=== PATIENT | female | born 1945 | race African-American/Black ===

== ENCOUNTER 2022-05-05 15:30 | Inpatient (IN) ==
[2022-05-05] MEDS ORDERED: SODIUM CHLORIDE 0.9% 1,000 ML IV STA (16:20)
[2022-05-05 16:28] LABS: Basophils % 0.2 % (0.0-0.8); Eosinophils % 0.1 % (0.00-10.9); Hematocrit 34.2 VOL% (35.7-47.0); Immature Granulocytes % 0.4 %; Immature Granulocytes Absolute 0.04 #; Lymphocytes # 1.4 10*3/uL (1.4-4.0); Mean Corpuscular HGB Conc 29.2 GM/DL (32-36); Mean Corpuscular Volume 92.7 FL (87-102); Mean Platelet Volume 11.7 FL (9.6-12.0); Monocytes # 0.7 10*3/uL (0.11-0.8); Monocytes % 7.3 % (1.7-12.7); Platelet Count 258 T/CUMM (130-400); Red Blood Count 3.69 MC/CUMM (3.8-5.5); Red Cell Distribution Width 15.1 % (9.3-17.3); White Blood Count 9.8 T/CUMM (4-12)
[2022-05-05 16:55] LABS: Alanine Aminotransferase 24 U/L (13-56); Albumin 2.8 G/DL (3.4-5.0); Alkaline Phosphatase 91 U/L (45-117); Aspartate Amino Transferase 24 U/L (0-37); Bilirubin,Total < 0.39 MG/DL (0.20-1.00); Blood Urea Nitrogen 31 MG/DL (7-18); Calcium 9.5 MG/DL (8.5-10.1); Carbon Dioxide 33 MMOL/L (21-32); Chloride 108 MMOL/L (98-107); Glucose 186 MG/DL (74-106); Osmolality,Calculated 301.6 MOS/KG (273-304); Potassium 3.6 MMOL/L (3.5-5.1); Sodium 146 MMOL/L (136-145); Total Protein 9.5 G/DL (6.4-8.2)
[2022-05-05 17:23] LABS: PT Patient Result 10.8 SECS (10.1-12.1)
[2022-05-05] MEDS ORDERED: PANTOPRAZOLE 40 MG VIAL IV STA (17:26)
[2022-05-05] MEDS ORDERED: ONDANSETRON 4 MG/2 ML VIAL IV STA (17:26)
[2022-05-05] MEDS ORDERED: ONDANSETRON 4 MG/2 ML VIAL ONE (17:26)
[2022-05-05] MEDS ORDERED: PIPERACILLIN/TAZOBACTAM 3,375 MG in SODIUM CHLORIDE 0.9% 100 ML IV STA (17:27)
[2022-05-05 17:28] LABS: Partial Thromboplastin Time < 20.0 SECS (23.7-32.9)
[2022-05-05 17:51] LABS: Bilirubin,Urine Negative (Negative); Blood, Urine Moderate mg/dL (Negative); Glucose,Urine (UA) Negative (Negative); Ketones,Urine Negative (Negative); Nitrite,Urine Negative (Negative); Protein,Urine >=300 mg/dL (Negative); Urine Appearance Slightly Hazy (Clear); Urine Color Yellow (Yellow); Urine Specific Gravity 1.025 (1.001-1.035); Urine Urobilinogen 0.2 eU/dL (<2.0)
[2022-05-05 17:54] LABS: Bacteria,Urine Few /HPF (Few); Mucus,Urine Occasional /LPF (Occasional); RBC,Urine 20 /HPF (0-4)
[2022-05-05] MEDS ORDERED: PANTOPRAZOLE INJ 80 MG in SODIUM CHLORIDE 0.9% 100 ML IV ONE (18:07)
[2022-05-05] MEDS ORDERED: ONDANSETRON 4 MG/2 ML VIAL IV PRN (18:07)
[2022-05-05] MEDS ORDERED: SODIUM CHLORIDE 0.9% 1,000 ML IV PRN (18:13)
[2022-05-05] MEDS ORDERED: DEXTROSE 10% 250 ML BAG IV PRN (18:36)
[2022-05-05] MEDS ORDERED: GLUCAGON 1 MG VIAL IM PRN (18:36)
[2022-05-05 18:39] LABS: Thyroid Stimulating Hormone 3.03 uIU/ml (0.358-3.74)
[2022-05-05] MEDS ORDERED: AZITHROMYCIN INJ 500 MG in SODIUM CHLORIDE 0.9% 250 ML IV SCH (20:00)
[2022-05-05] MEDS: LACTATED RINGERS 1,000 ML IV SCH (20:37)
[2022-05-05] MEDS ORDERED: cefTRIAXone 1,000 MG in SODIUM CHLORIDE 0.9% 100 ML IV SCH (21:00)
[2022-05-05] MEDS ORDERED: PANTOPRAZOLE INJ 200 MG in SODIUM CHLORIDE 0.9% 250 ML IV SCH (21:00)
[2022-05-05 22:56] LABS: Hematocrit 33.2 VOL% (35.7-47.0); Hemoglobin 9.9 GM/DL (12.0-16.0)
[2022-05-05] MEDS: ALBUTEROL/IPRATROPIUM 3 ML NEB RESP TX SCH (23:50)
[2022-05-06] MEDS: INSULIN LISPRO 100 UNIT/ML SUBCUT SCH ×5 (00:07→23:47)
[2022-05-06] MEDS: ALBUTEROL/IPRATROPIUM 3 ML NEB RESP TX SCH ×6 (03:00→22:44)
[2022-05-06 05:00] LABS: Calcium 8.8 MG/DL (8.5-10.1); Osmolality,Calculated 298.4 MOS/KG (273-304); Potassium 3.3 MMOL/L (3.5-5.1)
[2022-05-06 05:21] LABS: Basophils % 0.1 % (0.0-0.8); Hemoglobin 9.6 GM/DL (12.0-16.0); Immature Granulocytes % 0.4 %; Immature Granulocytes Absolute 0.04 #; Lymphocytes # 1.9 10*3/uL (1.4-4.0); Lymphocytes % 17.5 % (21.3-54.2); Mean Corpuscular HGB Conc 29.1 GM/DL (32-36); Mean Corpuscular Volume 93.2 FL (87-102); Mean Platelet Volume 12.1 FL (9.6-12.0); Monocytes # 0.8 10*3/uL (0.11-0.8); Monocytes % 7.3 % (1.7-12.7); NRBC # 0.02 10*3/uL; Neutrophils % 74.7 % (38.7-73.9); Platelet Count 245 T/CUMM (130-400); Red Blood Count 3.54 MC/CUMM (3.8-5.5); Red Cell Distribution Width 15.1 % (9.3-17.3); White Blood Count 10.8 T/CUMM (4-12)
[2022-05-06] MEDS: POTASSIUM CHLORIDE RIDER 10 MEQ/100 ML PREMIX IV PRN ×4 (05:48→09:16)
[2022-05-06 06:12] LABS: Hypochromia Slight
[2022-05-06 06:13] LABS: Platelet Estimate Normal
[2022-05-06] MEDS: PIPERACILLIN/TAZOBACTAM 3,375 MG in SODIUM CHLORIDE 0.9% 100 ML IV SCH ×2 (09:11→17:55)
[2022-05-06] MEDS: fentaNYL 12 MCG/HR PATCH TRANSDERM SCH (15:04)
[2022-05-06] MEDS: GABAPENTIN 300 MG CAPSULE PEG SCH ×2 (15:04→20:37)
[2022-05-06] MEDS: LACTATED RINGERS 1,000 ML IV SCH (15:11)
[2022-05-06] MEDS: DOCUSATE SODIUM 100 MG/10 ML UDCUP PEG SCH (20:38)
[2022-05-06] MEDS: METOPROLOL TARTRATE 50 MG TABLET PO SCH (20:38)
[2022-05-06] MEDS ORDERED: [UNRECOGNIZED DRUG - OTHER] PEG SCH (21:00)
[2022-05-07] MEDS: PIPERACILLIN/TAZOBACTAM 3,375 MG in SODIUM CHLORIDE 0.9% 100 ML IV SCH ×3 (00:09→16:48)
[2022-05-07] MEDS: ALBUTEROL/IPRATROPIUM 3 ML NEB RESP TX SCH ×6 (03:05→22:24)
[2022-05-07] MEDS: LACTATED RINGERS 1,000 ML IV SCH (03:51)
[2022-05-07] MEDS: INSULIN LISPRO 100 UNIT/ML SUBCUT SCH ×3 (05:30→17:42)
[2022-05-07 06:37] LABS: Basophils % 0.4 % (0.0-0.8); Eosinophils # 0.1 10*3/uL (0.0-0.87); Eosinophils % 1.5 % (0.00-10.9); Hematocrit 29.5 VOL% (35.7-47.0); Hemoglobin 8.5 GM/DL (12.0-16.0); Immature Granulocytes % 0.5 %; Immature Granulocytes Absolute 0.05 #; Lymphocytes # 1.1 10*3/uL (1.4-4.0); Lymphocytes % 12.4 % (21.3-54.2); Mean Corpuscular HGB Conc 28.8 GM/DL (32-36); Mean Corpuscular Volume 94.2 FL (87-102); Mean Platelet Volume 11.2 FL (9.6-12.0); Monocytes # 0.6 10*3/uL (0.11-0.8); Monocytes % 6.6 % (1.7-12.7); Neutrophils % 78.6 % (38.7-73.9); Platelet Count 227 T/CUMM (130-400); Red Blood Count 3.13 MC/CUMM (3.8-5.5); Red Cell Distribution Width 15.2 % (9.3-17.3); White Blood Count 9.1 T/CUMM (4-12)
[2022-05-07 07:09] LABS: Calcium 8.8 MG/DL (8.5-10.1); Osmolality,Calculated 296.3 MOS/KG (273-304); Potassium 3.3 MMOL/L (3.5-5.1)
[2022-05-07] MEDS: POTASSIUM CHLORIDE RIDER 10 MEQ/100 ML PREMIX IV PRN ×5 (08:29→13:40)
[2022-05-07] MEDS: PANTOPRAZOLE 40 MG VIAL IV SCH ×2 (08:30→20:40)
[2022-05-07] MEDS: DOCUSATE SODIUM 100 MG/10 ML UDCUP PEG SCH ×2 (08:33→20:39)
[2022-05-07] MEDS: LOSARTAN 50 MG TABLET PEG SCH (08:33)
[2022-05-07] MEDS: ATORVASTATIN 10 MG TABLET PEG SCH (08:33)
[2022-05-07] MEDS: METOPROLOL TARTRATE 50 MG TABLET PO SCH ×2 (08:33→22:11)
[2022-05-07] MEDS: GABAPENTIN 300 MG CAPSULE PEG SCH ×3 (08:33→20:39)
[2022-05-07] MEDS: DEXTROSE 5% NACL 0.45% 1,000 ML IV SCH (09:28)
[2022-05-08] MEDS: DEXTROSE 5% NACL 0.45% 1,000 ML IV SCH ×2 (01:37→17:08)
[2022-05-08] MEDS: PIPERACILLIN/TAZOBACTAM 3,375 MG in SODIUM CHLORIDE 0.9% 100 ML IV SCH ×3 (01:45→17:08)
[2022-05-08] MEDS: INSULIN LISPRO 100 UNIT/ML SUBCUT SCH ×4 (01:57→17:40)
[2022-05-08] MEDS: ALBUTEROL/IPRATROPIUM 3 ML NEB RESP TX SCH ×6 (03:39→23:59)
[2022-05-08 06:19] LABS: Basophils % 0.4 % (0.0-0.8); Eosinophils # 0.3 10*3/uL (0.0-0.87); Eosinophils % 3.8 % (0.00-10.9); Hematocrit 26.6 VOL% (35.7-47.0); Hemoglobin 7.7 GM/DL (12.0-16.0); Immature Granulocytes % 0.4 %; Immature Granulocytes Absolute 0.03 #; Lymphocytes # 1.3 10*3/uL (1.4-4.0); Lymphocytes % 16.3 % (21.3-54.2); Mean Corpuscular HGB Conc 28.9 GM/DL (32-36); Mean Corpuscular Volume 93.3 FL (87-102); Mean Platelet Volume 11.2 FL (9.6-12.0); Monocytes # 0.6 10*3/uL (0.11-0.8); Monocytes % 7.1 % (1.7-12.7); Platelet Count 212 T/CUMM (130-400); Red Blood Count 2.85 MC/CUMM (3.8-5.5); Red Cell Distribution Width 15.1 % (9.3-17.3); White Blood Count 7.7 T/CUMM (4-12)
[2022-05-08 06:36] LABS: Phosphorous 1.8 MG/DL (2.5-4.9)
[2022-05-08 06:37] LABS: Calcium 8.5 MG/DL (8.5-10.1); Osmolality,Calculated 298.3 MOS/KG (273-304); Potassium 3.2 MMOL/L (3.5-5.1)
[2022-05-08] MEDS: LACTATED RINGERS 1,000 ML IV SCH ×2 (07:47→13:13)
[2022-05-08] MEDS: POTASSIUM CHLORIDE RIDER 10 MEQ/100 ML PREMIX IV PRN (07:55)
[2022-05-08] MEDS: LOSARTAN 50 MG TABLET PEG SCH (08:07)
[2022-05-08] MEDS: METOPROLOL TARTRATE 50 MG TABLET PO SCH ×2 (08:07→21:10)
[2022-05-08] MEDS: ATORVASTATIN 10 MG TABLET PEG SCH (08:07)
[2022-05-08] MEDS: DOCUSATE SODIUM 100 MG/10 ML UDCUP PEG SCH ×2 (08:07→21:09)
[2022-05-08] MEDS: GABAPENTIN 300 MG CAPSULE PEG SCH ×3 (08:08→21:10)
[2022-05-08] MEDS: PANTOPRAZOLE 40 MG VIAL IV SCH ×2 (08:09→21:09)
[2022-05-08] MEDS ORDERED: POTASSIUM PHOSPHATE 30 MMOL in SODIUM CHLORIDE 0.9% 250 ML IV ONE (09:00)
[2022-05-08] MEDS ORDERED: propofoL 200 MG/20 ML VIAL IV ONE (14:29)
[2022-05-08] MEDS ORDERED: LIDOCAINE 2% 5 ML VIAL ONE (14:29)
[2022-05-08] MEDS: traMADol 50 MG TABLET PEG PRN (21:10)
[2022-05-09] MEDS: MENTHOL/ZINC OXIDE OINT 71 GM JAR TOP SCH ×2 (00:22→10:05)
[2022-05-09] MEDS: INSULIN LISPRO 100 UNIT/ML SUBCUT SCH ×4 (00:22→19:09)
[2022-05-09] MEDS: PIPERACILLIN/TAZOBACTAM 3,375 MG in SODIUM CHLORIDE 0.9% 100 ML IV SCH ×3 (00:23→18:24)
[2022-05-09] MEDS: DEXTROSE 5% NACL 0.45% 1,000 ML IV SCH ×2 (04:19→19:09)
[2022-05-09] MEDS: ALBUTEROL/IPRATROPIUM 3 ML NEB RESP TX SCH ×5 (04:45→18:04)
[2022-05-09 04:51] LABS: Basophils % 0.2 % (0.0-0.8); Eosinophils # 0.3 10*3/uL (0.0-0.87); Eosinophils % 4.8 % (0.00-10.9); Hematocrit 26.7 VOL% (35.7-47.0); Hemoglobin 7.9 GM/DL (12.0-16.0); Immature Granulocytes % 0.6 %; Immature Granulocytes Absolute 0.04 #; Lymphocytes % 15.6 % (21.3-54.2); Mean Corpuscular HGB Conc 29.6 GM/DL (32-36); Mean Corpuscular Volume 91.1 FL (87-102); Monocytes # 0.4 10*3/uL (0.11-0.8); Monocytes % 6.7 % (1.7-12.7); NRBC # 0.02 10*3/uL; Neutrophils % 72.1 % (38.7-73.9); Platelet Count 200 T/CUMM (130-400); Red Blood Count 2.93 MC/CUMM (3.8-5.5); Red Cell Distribution Width 15.1 % (9.3-17.3); White Blood Count 6.4 T/CUMM (4-12)
[2022-05-09 05:13] LABS: Calcium 8.2 MG/DL (8.5-10.1); Osmolality,Calculated 295.6 MOS/KG (273-304); Phosphorous 1.9 MG/DL (2.5-4.9); Potassium 3.4 MMOL/L (3.5-5.1)
[2022-05-09] MEDS: LACTATED RINGERS 1,000 ML IV SCH (06:00)
[2022-05-09] MEDS: PANTOPRAZOLE 40 MG VIAL IV SCH (09:58)
[2022-05-09] MEDS ORDERED: SODIUM CHLORIDE 0.9% 1,000 ML IV PRN (10:00)
[2022-05-09] MEDS: GABAPENTIN 300 MG CAPSULE PEG SCH ×2 (10:04→15:10)
[2022-05-09] MEDS: DOCUSATE SODIUM 100 MG/10 ML UDCUP PEG SCH (10:04)
[2022-05-09] MEDS: ATORVASTATIN 10 MG TABLET PEG SCH (10:04)
[2022-05-09] MEDS: METOPROLOL TARTRATE 50 MG TABLET PO SCH (10:04)
[2022-05-09] MEDS: LOSARTAN 50 MG TABLET PEG SCH (10:04)
[2022-05-09] MEDS: traMADol 50 MG TABLET PEG PRN (10:07)
[2022-05-09] MEDS ORDERED: POTASSIUM PHOSPHATE 30 MMOL in SODIUM CHLORIDE 0.9% 250 ML IV ONE (11:00)
[2022-05-09] MEDS: METOCLOPRAMIDE 10 MG/10 ML UDCUP PO SCH ×2 (13:03→16:18)
[2022-05-09] MEDS: fentaNYL 12 MCG/HR PATCH TRANSDERM SCH (15:08)
[2022-05-09 16:37] VITALS: BP 141/65
[2022-05-09] MEDS ORDERED: OMEPRAZOLE ODT 20 MG TABLET PER TUBE SCH (21:00)
== END 2022-05-09 20:30 | DRG 177 ==
LOC: EDBD → EDUNIT# → N.ED 15:30 → SUATTDRO 18:07 → N.ICU 18:07 → N.3E 05-08 16:36
PROVIDERS: ADMIT Family Medicine; ATTEND Internal Medicine